=== PATIENT | male | born 1980 | race Caucasian/White ===

== ENCOUNTER 2017-01-14 10:55 | Emergency (ER) | payer OTHER ==
[2017-01-14 11:03] VITALS: BP 158/98; PULSE 92; RESP 18; TEMP 98.2; O2SAT 98
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
== END 2017-01-14 12:12 | disposition home or self-care (01) ==
LOC: C.ER 10:55
DX: S50.12XA Contusion of left forearm, initial encounter (principal); S50.312A Abrasion of left elbow, initial encounter; V89.2XXA Person injured in unspecified motor-vehicle accident, traffic, initial encounter

== ENCOUNTER 2018-09-29 09:54 | Emergency (ER) | payer OTHER ==
--- NOTE | 2018-09-29 10:03 | C.PDOC ---
History Of Present Illness 38 y/o male, otherwise well, presents to the ED complaining of a sore throat for 3 days. Associated with pain on swallowing. Patient otherwise denies any nausea, vomiting, abdominal pain, productive cough, congestion, fevers, or chills. Time Seen by Provider: 09/29/18 10:02 Chief Complaint (Nursing): ENT Problem History Per: Patient History/Exam Limitations: None Onset/Duration Of Symptoms: Days (x3) Current Symptoms Are (Timing): Still Present Past Medical History Reviewed: Historical Data, Nursing Documentation, Vital Signs - Medical History PMH: Arthritis (PSORIATIC) Family History: States: Unknown Family Hx - Social History Hx Alcohol Use: No Hx Substance Use: No - Immunization History Hx Influenza Vaccination: No Hx Pneumococcal Vaccination: No Review Of Systems Except As Marked, All Systems Reviewed And Found Negative. Constitutional: Negative for: Fever, Chills, Sweats ENT: Positive for: Throat Pain, Other (Pain on swallowing) Respiratory: Negative for: Cough, Sputum Gastrointestinal: Negative for: Nausea, Vomiting, Diarrhea Neurological: Negative for: Weakness, Headache Physical Exam - Physical Exam Appears: Non-toxic, No Acute Distress Skin: Normal Color, Warm, Dry Head: Atraumatic, Normacephalic Eye(s): bilateral: Normal Inspection, PERRL, EOMI Oral Mucosa: Moist Tongue: Normal Appearing Teeth: Normal Dentition Throat: Erythema (mild pharyngeal erythema), Exudate (Left tonsil with scant exudate) Neck: Normal ROM, Supple Chest: Symmetrical Respiratory: No Accessory Muscle Use, Other (speaking in full sentences, no respiratory distress) Extremity: Bilateral: Atraumatic, Normal Color And Temperature Neurological/Psych: Oriented x3, Normal Speech ED Course And Treatment O2 Sat by Pulse Oximetry: 98 (RA) Pulse Ox Interpretation: Normal Medical Decision Making Medical Decision Making: Impression: Viral pharyngitis Plan: --Motrin 600 mg PO Counseled regarding diagnosis and follow-up instructions. Patient will be discharged home, advised to take Motrin for pain. Disposition Counseled Patient/Family Regarding: Diagnosis, Need For Followup - Disposition Disposition: HOME/ ROUTINE Disposition Time: 10:02 Condition: STABLE Prescriptions: Ibuprofen [Motrin] 600 mg PO TID #15 tab Instructions: Viral Pharyngitis (DC) Forms: devsisters (Singaporean), devsisters (Italian) - POA Present On Arrival: None - Clinical Impression Clinical Impression: Pharyngitis - Scribe Statement The provider has reviewed the documentation as recorded by the Bri Licona Provider Attestation: All medical record entries made by the Bri were at my direction and personally dictated by me. I have reviewed the chart and agree that the record accurately reflects my personal performance of the history, physical exam, medical decision making, and the department course for this patient. I have also personally directed, reviewed, and agree with the discharge instructions and disposition.
[2018-09-29 10:11] VITALS: BP 129/84; PULSE 87; RESP 16; TEMP 98.3; O2SAT 98
== END 2018-09-29 10:51 | disposition home or self-care (01) ==
LOC: C.ER 09:54
DX: J02.9 Acute pharyngitis, unspecified (principal)